=== PATIENT | male | born 1970 | race Caucasian/White ===

== ENCOUNTER 2016-10-24 12:47 | Emergency (ER) ==
[2016-10-24 12:58] VITALS: BP 117/70
--- NOTE | 2016-10-24 13:14 | PROVIDER DOCUMENTATION ---
HPI-Rash/Wound/ReCheck - General Chief Complaint: Suture/Staple Removal Stated Complaint: SUTURE/STAPLE REMOVAL Time Seen by Provider: 10/24/16 13:00 Source: patient Allergies/Adverse Reactions: Allergies Allergy/AdvReac Type Severity Reaction Status Date / Time No Known Allergies Allergy Verified 10/24/16 12:58 Home Medications: Home Medication List Medication Instructions Recorded Confirmed Last Taken Type Meloxicam [Mobic] 7.5 mg PO BID 10/15/16 10/24/16 10/23/16 History - History of Present Illness-Dermatology Nature of Presenting Problem: Pt was seen in ER 7 days ago for laceration repair above left eyebrow when he tripped and fell over dog. Pt had 7 sutures. Denies any pain or symptoms of infection. Location: reports: face Quality: reports: none Severity: reports: mild Onset/Duration: reports: 1 week ago Timing: reports: improving Context/Associated Symptoms: reports: laceration Identifiable cause?: Yes Locality of Occurance: Home Similar Symptoms Previously?: Yes Recently seen or treated by another doctor?: Yes - Recheck Treated days ago.: 7 Previous Treatment: laceration repair Antibiotics given: prescription Symptoms since procedure:: reports: no complaints Review of Systems - Adult - REVIEW OF SYSTEMS - ADULT Constitutional: denies: chills, fever, fatique Eyes: reports: no symptoms reported Ears, Nose, Mouth & Throat: denies: ear pain, sinus problem, throat pain Cardiovascular: reports: no symptoms reported Respiratory: reports: no symptoms reported Gastrointestinal: reports: no symptoms reported Genitourinary: reports: no symptoms reported Musculoskeletal: reports: no symptoms reported Integumentary: reports: see HPI. denies: mole changes, nail changes, skin thickening Neurological: reports: no symptoms reported Psychiatric: reports: no symptoms reported Endocrine: reports: no symptoms reported Hematologic/Lymphatic: reports: no symptoms reported Allergic/Immunologic: reports: no symptoms reported All Other Systems: Reviewed and Negative Past History - Adult - PAST MEDICAL HISTORY-ADULT Review of Records: reports: Nursing Assessment Review Major Childhood Illnesses: reports: denies history Cardiovascular: reports: HTN, hyperlipidemia Gastrointestinal: reports: GERD - IMMUNIZATION STATUS Childhood Immunizations: See Nurse Assessment Flu Vaccine: See Nurse Assessment - FAMILY HISTORY Family History: reviewed, not pertinent - SOCIAL HISTORY Smoking: cigarettes, less than 1 pack/day Provider spent 3-5 mins advising pt. on dangers of tobacco.: Discussed manners to quit use, and f/u contacts for add'l counseling. Substance Use: alcohol, marijuana Physical Exam-General - PHYSICAL EXAM-ADULT Initial Vital Signs Reviewed: Yes - CONSTITUTIONAL General Appearance: appears well, alert, no apparent distress - EYES Eyes: PERRL/EOMI - HEAD, EARS, NOSE, MOUTH & THROAT HENMT: normal ENT inspection, TMs normal, pharynx normal, other (sutures in place to left forehead above eyebrow no signs of redness or infection healing well) - NECK Neck: non-tender, full range of motion, supple, normal inspection - RESPIRATORY Respiratory: chest non-tender, lungs clear, normal breath sounds, no pleuratic chest pain, no respiratory distress, no accessory muscle use - CARDIOVASCULAR Cardiovascular: regular rate, rhythm - GASTROINTESTINAL (ABDOMEN) Abdominal Exam: non tender, soft, no organomegaly, no pulsatile mass - MUSCULOSKELETAL Extremity: normal range of motion, non-tender, normal gait - SKIN Integumentary: normal color - PSYCHIATRIC Psych/Mental Status: normal mood/affect, normal thought content, normal thought process, oriented x 3 Progress - PLAN OF CARE/RESULTS Progress/Plan/Lab Results: Nurse removed 7 sutures from pt left eyebrow area no complications no signs of infection Vital Signs - 24 hr 10/24/16 12:56 Temperature 99.0 F Pulse Rate 90 Respiratory 18 Rate Blood Pressure 117/70 O2 Sat by Pulse 97 Oximetry Departure - Departure Time of Disposition Order: 13:13 DIAGNOSIS: Visit for suture removal Disposition: HOME 01 Certified Medical Emergency: Emergent Condition: Stable Additional Instructions: ED Follow Up Instructions: You have been treated by a care provider in the Emergency Department. These instructions are being provided to you so you can have an understanding of how to care for yourself upon discharge. Upon discharge from the Emergency Department, you are responsible for making arrangements for follow-up care by a physician of your choice. Take all prescribed medications as directed. Return to the Emergency Department immediately for any new or worsening symptoms. You may call the Physician Referral phone number at [phone] to obtain a list of Physicians who are taking new patients. Referrals: Alexandra Berman MD [Primary Care Provider] - Forms: Return to School/Parent Work Instructions: Suture Removal, Care After Attestation - Scribe Verification/Attestation Scribe:: Alejandro Ramesh Acting as Scribe for:: Adria No Scribe documention review:: This chart was documented by a scribe and accurately reflects the service the provider performed and the decisions made by the provider. Physician Attestation - Physician Attestation I, the provider, attest to the following statement:: Adria No Physician documentation Attestation:: This documentation recorded by the scribe accurately reflects the service I personally performed and the decisions made by me.
== END 2016-10-24 13:23 | disposition home or self-care (01) ==
LOC: P.ED 12:47
DX: S01.81XD Laceration without foreign body of other part of head, subsequent encounter (principal); I10 Essential (primary) hypertension; E78.5 Hyperlipidemia, unspecified; F17.210 Nicotine dependence, cigarettes, uncomplicated; Z71.6 Tobacco abuse counseling; W01.0XXD Fall on same level from slipping, tripping and stumbling without subsequent striking against object, subsequent encounter
CPT/HCPCS: 99282

== ENCOUNTER 2017-01-06 12:43 | Inpatient (IN) ==
[2017-01-06] MEDS ORDERED: NS 1,000 ML IV PRN (12:52)
[2017-01-06] MEDS ORDERED: NS 1,000 ML IV ONE ×2 (13:04→17:17)
[2017-01-06] MEDS ORDERED: ZOFRAN IV ONE ×2 (13:05→13:07)
[2017-01-06 13:06] LABS: MANUAL DIFF NEEDED? NO
[2017-01-06] MEDS ORDERED: ZOFRAN ONE (13:06)
[2017-01-06] MEDS ORDERED: NS 1,000 ML ONE (13:06)
[2017-01-06 13:07] LABS: BASO% 0.4 % (0.0-0.8); EOS# 0.04 X1000 (0.0-0.7); EOS% 0.3 % (0.0-10.0); HEMATOCRIT 44.8 % (42.0-52.0); HEMOGLOBIN 14.9 g/dL (14.0-18.0); IMM GRAN# 0.03 X1000 (0.0-0.04); IMM GRAN% 0.2 % (0.0-0.5); LYMPH# 2.05 X1000 (1.2-3.4); LYMPH% 15.2 % (20.5-51.1); MCH 29.6 PG (27-31); MCHC 33.3 g/dL (33-37); MCV 89.1 FL (81-99); MONO# 0.44 X1000 (0.11-0.59); MONO% 3.3 % (1.7-9.3); MPV 10.1 FL (7.4-10.4); NEUT% 80.6 % (42.2-75.2); PLT 237 X1000 (130-400); RBC 5.03 XMIL (4.7-6.1)
[2017-01-06 13:27] LABS: INR 0.93 (0.86-1.15); PROTIME 12.8 Seconds (12.1-15.5)
[2017-01-06 13:28] LABS: PTT PL 25.8 Seconds (22.6-43.9)
[2017-01-06 13:35] LABS: AGAP 12; ALKALINE PHOSPHATASE 88 U/L (32-122); BUN 13 mg/dL (8-22); CALCIUM 8.9 mg/dL (8.8-10.2); CHLORIDE 102 mmol/L (98-107); COSMO 279; GOT 22 U/L (10-34); GPT 18 U/L (10-44); POTASSIUM 4.1 mmol/L (3.5-5.1); SODIUM 138 mmol/L (136-145); TCO2 24 mmol/L (25-35); TOTAL PROTEIN 7.4 g/dL (6.3-8.3)
--- NOTE | 2017-01-06 14:11 | Diag Imaging Result Document ---
PROCEDURE NAME: FLAT/UPRIGHT ABD/1 VIEW CHEST - 01/06/2017 FLAT AND UPRIGHT AND CHEST, THREE VIEWS: FINDINGS: The lungs are well expanded. No cardiomegaly. No pneumonia. No free air beneath the diaphragm. There are several air distended loops of small bowel in the mid and left abdomen. Stool is found is in the colon. No organomegaly. There is left pelvic calcification consistent with a phlebolith. IMPRESSION: Ileus versus partial small bowel obstruction.
[2017-01-06 16:36] LABS: AMYLASE 102 U/L (20-200); LIPASE 23 U/L (13-60)
[2017-01-06] MEDS ORDERED: ZOSYN 3.375 GM/NS 3.375 GM/50 ML IVPB IV ONE (16:43)
--- NOTE | 2017-01-06 16:58 | Diag Imaging Result Document ---
PROCEDURE NAME: ABDOMEN/PELVIS W/CONTRAST - 01/06/2017 CT ABDOMEN AND PELVIS WITH ORAL AND INTRAVENOUS CONTRAST: TECHNIQUE: Dose reduction protocol. FINDINGS: There is pericholecystic fluid with mild wall thickening suspicious for acute cholecystitis. No calcified gallstone. No focal hepatic abnormality. Normal spleen, pancreas, and adrenal glands. 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 No renal masses. No hydronephrosis. No aortic aneurysm. No bowel obstruction. Normal appearance. No abscess. No free air. The urinary bladder is moderately distended and appears normal. IMPRESSION: 1. Findings suspicious for acute cholecystitis. 2. Malpositioned and rotated left kidney. 3. No bowel obstruction. Normal appendix. No abscess. A preliminary report was called to Dr. Doyle in the emergency room at 4:03 p.m.
--- NOTE | 2017-01-06 17:16 | PROVIDER DOCUMENTATION ---
This chart was entered by Martine Gutierrez Scribe, acting as scribe for Red Doyle MD. HPI-Abdominal Pain/GI Problem - General Chief Complaint: Abdominal Pain Stated Complaint: ABD PAIN Time Seen by Provider: 01/06/17 13:05 Source: patient Allergies/Adverse Reactions: Patient Allergies Allergy/AdvReac Type Severity Reaction Status Date / Time No Known Allergies Allergy Verified 10/24/16 12:58 Home Medications: Home Medication List Medication Instructions Recorded Confirmed Last Taken Type Meloxicam [Mobic] 7.5 mg PO BID 10/15/16 10/24/16 10/23/16 History - History of Present Illness-ABD Nature of Presenting Problems: 46 yo M presents to ED with cc of epigastric abdominal pain with some radiation to RUQ and LUQ. Pt reports he is a recovering methamphetamine addict who relapsed last night. He reports 2 episodes of vomiting in the last 24 hours and denies blood in his vomit. Upon arrival to ED, pt is in moderate distress. Abdominal Pain Onset Location: reports: epigastric Pain Radiation: reports: RUQ, LUQ Severity in ED: reports: moderate Onset/Duration: reports: abrupt, 4-6 hours ago Timing: reports: still present Activities at Onset: reports: other (methamphetamine use) Exposure to sick contacts?: No Modifying Factors: improves with: nothing Associated Symptoms: reports: vomiting Dark Stools Present?: reports: none noticed Rectal Bleeding: reports: none # of Vomiting Episodes: 2 Review of Systems - Adult - REVIEW OF SYSTEMS - ADULT Constitutional: reports: no symptoms reported. denies: chills, fever Eyes: reports: no symptoms reported. denies: blurred vision, double vision Ears, Nose, Mouth & Throat: reports: no symptoms reported. denies: ear pain, nose pain, throat swelling Cardiovascular: reports: no symptoms reported. denies: chest pain, palpitations Respiratory: reports: no symptoms reported. denies: cough, shortness of breath Gastrointestinal: reports: abdominal pain (epigastric), vomiting Genitourinary: reports: no symptoms reported. denies: dysuria, flank pain Musculoskeletal: reports: no symptoms reported. denies: bone pain, back pain Integumentary: reports: no symptoms reported. denies: hives, itching Neurological: reports: no symptoms reported. denies: headache/migraines, loss of balance Psychiatric: reports: no symptoms reported. denies: anxiety, depression Endocrine: reports: no symptoms reported. denies: cold intolerance, heat intolerance Hematologic/Lymphatic: reports: no symptoms reported. denies: blood clots, lymphedema Allergic/Immunologic: reports: no symptoms reported. denies: eczema, frequent infections All Other Systems: Reviewed and Negative Past History - Adult - PAST MEDICAL HISTORY-ADULT Review of Records: reports: Old Records Reviewed, Nursing Assessment Review, Medications Reviewed Major Childhood Illnesses: reports: denies history Cardiovascular: reports: HTN, hyperlipidemia Gastrointestinal: reports: GERD - PRIOR SURGERIES/PROCEDURES Surgical/Procedure History: reports: none - IMMUNIZATION STATUS Childhood Immunizations: See Nurse Assessment Flu Vaccine: See Nurse Assessment - FAMILY HISTORY Family History: reviewed, not pertinent - SOCIAL HISTORY Substance Use: amphetamines (reports he was in recovery and had a relapse last night) Physical Exam-General - PHYSICAL EXAM-ADULT Initial Vital Signs Reviewed: Yes - CONSTITUTIONAL General Appearance: alert, moderate distress - EYES Eyes: PERRL/EOMI, pink conjunctivae - HEAD, EARS, NOSE, MOUTH & THROAT HENMT: normocephalic/atraumatic, moist mucous membranes, normal ENT inspection - NECK Neck: non-tender, full range of motion, supple - RESPIRATORY Respiratory: chest non-tender, lungs clear, normal breath sounds - CARDIOVASCULAR Cardiovascular: normal peripheral pulses, regular rate, rhythm - GASTROINTESTINAL (ABDOMEN) Abdominal Exam: normal bowel sounds, soft, tenderness (epigastric) - LYMPHATIC Lymphatic: no adenopathy - MUSCULOSKELETAL Back Exam: normal inspection, no CVA tenderness, no vertebral tenderness Extremity: normal range of motion, non-tender - SKIN Integumentary: normal color, normal turgor, warm/dry - NEUROLOGIC Neurologic: grossly normal, no motor/sensory deficits - PSYCHIATRIC Psych/Mental Status: normal mood/affect, normal thought content, normal thought process, oriented x 3 Progress - PLAN OF CARE/RESULTS Progress/Plan/Lab Results: Vital Signs - 8 hr 01/06/17 12:48 Pulse Rate 62 Respiratory Rate 20 Blood Pressure 193/99 O2 Sat by Pulse Oximetry 100 Orders Category Date Time Status Saline Loc DIRECTED Care 01/06/17 12:52 Active CBC WITH ELECTRONIC DIFF [HEME] Stat Lab 01/06/17 12:53 Results CK PROFILE [SP CHEM] Stat Lab 01/06/17 13:06 Ordered COMPREHENSIVE METABOLIC PANEL [CHEM] Stat Lab 01/06/17 12:53 Received OCCULT BLOOD SCREEN STOOL PL Stat Lab 01/06/17 12:52 Uncollected PROTIME WITH INR PL [COAG] Stat Lab 01/06/17 12:[address] [COAG] Stat Lab 01/06/17 12:53 Received TROPONIN T Stat Lab 01/06/17 13:06 Ordered TYPE & SCREEN [BBK] Stat Lab 01/06/17 12:53 Received 0.9% Sodium Chloride Inj [Ns] 1,000 ml Med 01/06/17 12:52 Discontinued IV 125 mls/hr 0.9% Sodium Chloride Inj [Ns] 1,000 ml Med 01/06/17 13:04 Active IV 999 mls/hr Ondansetron [Zofran] Med 01/06/17 13:05 Discontinued 4 mg IV NOW ONE Result Diagrams: 01/06/17 12:53 01/06/17 12:53 - REASSESSMENT Reassessment #1 Time Reassessed: 13:30 Status: unchanged Reassessment Comment: Deliver xray results and inform pt of need for CT Reassessment #2 Time Reassessed: 16:05 Status: unchanged Reassessment Comment: Deliver CT results - EKG 1 Time of EKG reading by physician:: 12:59 EKG Read and Signed by:: Red Doyle EKG Interpretation (*Must complete 3 of following elements*): Normal Rate: 46 Rhythm: sinus bradycardia [place]: normal QRS: normal [place] Interval: normal - XRAY 1 XRAY Study: Abdomen Impression: Abnormal XRAY Interpretation: Ileus versus partial small bowel obstruction (per Guero, radiology) - CT/MRI 1 CT Study: Abdomen Impression: Abnormal CT Results: acute cholecystitis (per Guero, radiology) Departure - Departure Time of Disposition Decision: 17:15 DIAGNOSIS: Cholecystitis Disposition: ADMITTED INPATIENT 09 Certified Medical Emergency: Emergent Condition: Stable Additional Freetext Instructions: ED Follow Up Instructions: You have been treated by a care provider in the Emergency Department. These instructions are being provided to you so you can have an understanding of how to care for yourself upon discharge. Upon discharge from the Emergency Department, you are responsible for making arrangements for follow-up care by a physician of your choice. Take all prescribed medications as directed. Return to the Emergency Department immediately for any new or worsening symptoms. You may call the Physician Referral phone number at [phone] to obtain a list of Physicians who are taking new patients. Referrals and Follow-Ups: Alexandra Berman MD [Primary Care Provider] - - Critical Care Note This patient required my direct & personal management of CC.: No Attestation - Physician/ ALISSA Attestation Patient care was provided by Advanced Practice Provider:: No This chart was documented by the indicated scribe, (Martine Gutierrez, Genieiblashay) and accurately reflects the services I performed and decisions made by me, Red Doyle MD, as attested by the provider's signature.
--- NOTE | 2017-01-06 18:57 | EKG Report ---
Test Performed on : 01/06/2017 12:59:07 PM Test Reason : cp Blood Pressure : / mmHG Vent. Rate : 046 BPM Atrial Rate : 046 BPM P-R Int : 158 ms QRS Dur : 098 ms QT Int : 446 ms P-R-T Axes : 028 -28 033 degrees QTc Int : 390 ms Sinus bradycardia. Otherwise normal ECG No previous ECGs available Unconfirmed Result
[2017-01-06] MEDS: LR 1,000 ML IV SCH (19:46)
[2017-01-06] MEDS ORDERED: SODIUM CHLORIDE 0.9% INJ SCH (21:15)
[2017-01-06] MEDS ORDERED: ZOFRAN IV PRN (21:15)
[2017-01-06] MEDS: ZOSYN 3.375 GM/NS 3.375 GM/50 ML IVPB IV SCH (22:08)
[2017-01-06] MEDS: PROTONIX IV SCH (22:08)
[2017-01-06] MEDS: MORPHINE IV PRN (22:08)
[2017-01-06 22:26] LABS: HDL 49 mg/dL (35-55); LDL 79 mg/dL; TRIGLYCERIDES 62 mg/dL (39-160); VLDL 12 mg/dL
--- NOTE | 2017-01-06 23:24 | HISTORY AND PHYSICAL ---
DATE OF ADMISSION: 01/06/2017 HISTORY OF PRESENT ILLNESS: This is a 46-year-old male with history of hypertension and methamphetamine abuse who had a methamphetamine dorado last night and developed acute abdominal pain this morning and nausea, vomiting associated with this prompting admission to the emergency department. In emergency department has been hemodynamically stable. Blood pressure 193/99 however he has received pain medicine, antiemetics and feels better. CT scan shows a dilated gallbladder with some stranding around it consistent with cholecystitis. PAST MEDICAL HISTORY: Hypertension. Denies any cardiac history, pulmonary history. SURGICAL HISTORY: Negative. REVIEW OF SYSTEMS: Ten point negative what is mentioned in HPI. SOCIAL HISTORY: Previously smoked methamphetamine most recently use last night. Denies any other injection drugs. Smokes pack a day. No alcohol. FAMILY HISTORY: Colon cancer in his father 75 and bone cancer in his mother. DATA: A CT scan of the abdomen and pelvis shows a congenital malposition left kidney, distended gallbladder with wall thickening and stranding and fluid consistent with cholecystitis but otherwise no acute findings. PHYSICAL EXAMINATION: Vital Signs: Temperature is 97.6 degrees, pulse 62, blood pressure 193/99, oxygen saturation 100% on room air. General: He is alert in no acute distress. HEENT: No scleral icterus. Cardiovascular: Normal rate, regular rhythm. Pulmonary: No increased work of breathing. Abdomen: Soft. There is some mild tenderness in right upper quadrant but is very mild. There is no diffuse peritonitis segments otherwise warm, dry. There is no cervical lymphadenopathy. Musculoskeletal: Muscle tone is normal throughout. Neuro: He does seem a bit drowsy but he is oriented to person, place, time. LABS: White count 13, hematocrit 44, platelets 237,000. INR 0.93. Sodium is 138, potassium 4.1, creatinine 0.7, glucose 151. LFTs are normal. Bilirubin 0.2, AST, ALT 22, 18, alkaline phosphatase 88, amylase 102, lipase 23, troponins are normal at less than 0.01. ASSESSMENT AND PLAN: 46-year-old male with methamphetamine abuse very hypertensive in emergency department now who presents with CT and clinical evidence of acute cholecystitis. Risks, benefits, alternatives including bleeding, infection, bile leak, common bile duct injury discussed with the patient. He consents to laparoscopic cholecystectomy. Will keep him NPO. He is receiving Zosyn now will continue this tonight and plan on cholecystectomy tomorrow. Will plan admit him to the hospital service for cardiac evaluation, management of his hypertension and hyperglycemia in anticipation of surgery tomorrow. cc: Umu Alfredo MD
--- NOTE | 2017-01-06 23:35 | CONSULTATION ---
DATE OF CONSULTATION: 01/06/2017 PRIMARY CARE PROVIDER: Alexandra Berman. CONSULTING PROVIDER: Rob Freeman, surgeon. CHIEF COMPLAINT: Abdominal pain. HISTORY OF PRESENT ILLNESS: This is a 46-year-old male who presented to [facility] emergency room with epigastric abdominal pain that radiated to his right upper and lower quadrant. He is reportedly a recovering methamphetamine addict who relapsed last night and smoked methamphetamines. He did report 2 episodes of vomiting in the last 24 hours. Denied any type of hematemesis. He described the pain as a sharp, aching pain that started abruptly on arrival to the emergency room. He was in moderate distress. He denied fever, chills. Was positive for nausea and vomiting x2 episodes. Denied any chest pain, palpitations, cough, shortness of breath, dysuria, flank pain or hematochezia or melena. A CT scan was obtained in the emergency room that showed acute cholecystitis. Dr. Alfredo was called by the ER and will admit and plan on surgery in a.m. PAST MEDICAL HISTORY: 1. Hypertension. 2. Hyperlipidemia. 3. GERD. 4. Methamphetamine use and abuse. PREVIOUS SURGICAL HISTORY: None. SOCIAL HISTORY: Lives with his dad. Is a recovering methamphetamine addict. States that he relapsed last night, denies alcohol, smokes 1/2 pack a cigarettes per day to 1 pack. Smoking cessation was gone over with the patient. He denies wanting to quit at this time. FAMILY HISTORY: Mother at age 69 from primary bone cancer. Father had colon cancer and is in remission. ALLERGIES: No known drug allergies. HOME MEDICATIONS: Mobic 7.5 mg daily. REVIEW OF SYSTEMS: Fourteen point review of systems conducted with the patient. Pertinent positives listed above in the HPI. All other systems were reviewed and found to be negative. PHYSICAL EXAMINATION: Vital Signs: Temperature 98.1 degrees, pulse 55, respirations 14, blood pressure 164/93, oxygen saturation 97% on room air. General: A 46-year-old male lying in the medical floor bed. Has some complaint of abdominal pain but no acute distress. Answers all questions appropriately. HEENT: Head is atraumatic, normocephalic. Pupils equal, round, reactive to light. Extraocular eye movement intact. Sclerae is anicteric. Conjunctivae is pink. Oral mucosa is moist. Neck: Supple. No JVD. No thyromegaly. Trachea is midline. No cervical lymphadenopathy. Cardiac: Regular rhythm. Sinus bradycardia. S1-S2 appreciated. No murmurs, gallops, rubs. Lungs: Clear to auscultation bilaterally. No rhonchi, wheezes , rales. Symmetrical rise and fall respirations. Abdomen: Soft, nondistended, diffusely tender. Greatest areas of tenderness in the right upper quadrant and right lower quadrant. Positive Ravi sign. No pulsatile mass. No organomegaly. Extremities: No clubbing, cyanosis, or edema. Genitourinary: The patient voids, otherwise deferred. Neurological: Alert and oriented x3. Cranial nerves 2-12 grossly intact. DIAGNOSTIC DATA: CT of the abdomen showed acute cholecystitis. LABORATORY DATA: WBC 13.50, hemoglobin 14.9, hematocrit 44.8, platelet count 237,000. Coagulations within normal limits. Sodium 138, potassium 4.1, chloride 102, carbon dioxide 24, BUN 13, creatinine 0.7, glucose 151, CK 81. Troponin less than 0.010. Amylase 102, lipase 23. ASSESSMENT AND PLAN: 1. Acute cholecystitis. Dr. Alfredo is planning to do surgery in a.m. He has started Zosyn. Will add morphine 2 mg IV q.3 hours p.r.n. pain. 2. Hypertension. Patient does not appear to be taking any chronic antihypertensives. Will give Apresoline 10 mg IV q.6 hours as he will be NPO at this time. Will assess further need for discharge medications. 3. Hyperlipidemia. Again patient does not take a medication for hyperlipidemia at home. Will check a lipid profile. 4. Methamphetamine use and abuse. The patient stated he relapsed last night but states that he is feels bad about it and is quitting. We are aware of this. 5. Tobacco use and abuse. Smoking cessation was gone over with the patient. He denies want to quit at this time. Further recommendations per patient clinical course. Dictated by SAMANTA Doshi for Rogerio Skelton MD cc: MD Rogerio Crockett MD R. Tyler Harney, MD MTDD
[2017-01-07] MEDS: APRESOLINE IV SCH ×5 (02:25→20:31)
[2017-01-07] MEDS: ZOSYN 3.375 GM/NS 3.375 GM/50 ML IVPB IV SCH ×2 (03:59→10:12)
[2017-01-07] MEDS: MORPHINE IV PRN ×5 (03:59→23:18)
[2017-01-07] MEDS: LR 1,000 ML IV SCH ×3 (04:52→23:19)
[2017-01-07 05:48] LABS: MANUAL DIFF NEEDED? NO
[2017-01-07 05:52] LABS: BASO% 0.1 % (0.0-0.8); EOS# 0.16 X1000 (0.0-0.7); HEMATOCRIT 39.6 % (42.0-52.0); HEMOGLOBIN 13.3 g/dL (14.0-18.0); LYMPH# 3.26 X1000 (1.2-3.4); LYMPH% 20.2 % (20.5-51.1); MCH 30.1 PG (27-31); MCHC 33.6 g/dL (33-37); MCV 89.6 FL (81-99); MONO# 0.97 X1000 (0.11-0.59); MPV 10.7 FL (7.4-10.4); NEUT% 72.7 % (42.2-75.2); PLT 230 X1000 (130-400); RBC 4.42 XMIL (4.7-6.1)
[2017-01-07 06:14] LABS: AGAP 12; BUN 7 mg/dL (8-22); CALCIUM 8.6 mg/dL (8.8-10.2); CHLORIDE 103 mmol/L (98-107); COSMO 276; POTASSIUM 4.1 mmol/L (3.5-5.1); SODIUM 139 mmol/L (136-145); TCO2 24 mmol/L (25-35)
[2017-01-07] MEDS ORDERED: PNEUMOVAX 23 IM ONE (07:34)
[2017-01-07] MEDS ORDERED: MARCAINE 0.25% PF/EPI 1:200,000 ONE (10:48)
[2017-01-07] MEDS ORDERED: SODIUM CHLORIDE 0.9% ONE (10:48)
[2017-01-07] MEDS ORDERED: LR 1,000 ML ONE (10:49)
[2017-01-07] MEDS ORDERED: OMNIPAQUE ONE (10:49)
[2017-01-07] MEDS ORDERED: PEPCID ONE (11:12)
--- NOTE | 2017-01-07 14:00 | PROGRESS NOTE ---
DATE: 01/07/2017 SUBJECTIVE: He feels okay this morning. No events overnight. Says his pain is improving but is still persistent. OBJECTIVE: Vital signs: Blood pressures have been better. Temperature 98.3 degrees this morning. It is up to 188/87. It was in the 150s overnight. Oxygen saturation 98% on room air. General: He is alert and oriented. HEENT: There is no scleral icterus. Cardiovascular: Normal rate. Regular rhythm. Pulmonary: No increased work of breathing. Abdomen: Soft. There is mild right upper quadrant tenderness. Skin: There is no jaundice on the skin exam. Extremities: There is no lower extremity edema. Reviewed. LABS: I reviewed labs. White count is up to 16, hematocrit is 39, creatinine 0.7. LFTs, amylase, and lipase were normal on the admission. ASSESSMENT AND PLAN: This is a 46-year-old male with gallstones, cholecystitis noted on CT scan, hypertension, and methamphetamine abuse. He has been clinically stable overnight. He is on antibiotics. Will plan to go to operating room today for laparoscopic cholecystectomy and cholangiogram. Risks, benefits, and alternatives were discussed with the patient and he consented to the procedure. We discussed the possibility of conversion to open, bleeding, infection, bile leak, and common bile duct injury, or damage to other structures. We also discussed possibility of leaving a drain and if stones are noted on ERCP the need for other ERCP procedures in the future. Continue to monitor him this morning. He is on IV antibiotics. He is NPO. Will plan to go to surgery and advance his diet as tolerated afterwards. The medicine service has seen him and has made recommendation regarding blood pressure and will ensure that he has good follow up for this in the future. cc: MD Nito Adame MD
[2017-01-07] MEDS ORDERED: FENTANYL ONE (15:21)
[2017-01-07] MEDS ORDERED: VERSED ONE (15:22)
[2017-01-07] MEDS ORDERED: DIPRIVAN 1% ONE (15:22)
--- NOTE | 2017-01-07 17:32 | OPERATIVE NOTE ---
PROCEDURE DATE: 01/07/2017 PREOPERATIVE DIAGNOSIS: Cholecystitis with cholelithiasis. POSTOPERATIVE DIAGNOSIS: Cholecystitis with cholelithiasis. PROCEDURE PERFORMED: Laparoscopic cholecystectomy with intraoperative cholangiogram. SURGEON: Umu Alfredo MD ESTIMATED BLOOD LOSS: 35 mL. SPECIMENS: Gallbladder. ANESTHESIA: General. DRAINS: Tone drain left in the gallbladder fossa. COMPLICATIONS: None. INDICATIONS: This is a 46-year-old male with a history of hypertension and methamphetamine abuse, who presents with right upper quadrant abdominal pain to the ER yesterday. CT scan suggested early cholecystitis. He was admitted for IV antibiotics and medical workup given his acute intoxication with methamphetamine. Prior to proceeding to surgery, he was medically stable this morning and was felt safe for cholecystectomy as his blood pressure had been controlled overnight. OPERATIVE FINDINGS: 1. There was a densely inflamed gallbladder with very thickened marinelli containing multiple large gallstones. 2. Interpretation of intraoperative cholangiogram: At the time of cholangiogram , there was an occluded cystic duct noted chronically. There was no evidence of flow of contrast in the common bile duct. This was an incomplete cholangiogram. OPERATIVE NOTE: The risks, benefits, and alternatives were discussed with the patient and he consented to the procedure. He was seen in the preoperative area and surgery to be performed was confirmed. He was taken to the operating room and placed in supine position. General anesthesia was induced without complications. All bony prominences were padded. The abdomen was prepped with chlorhexidine solution and draped in the usual fashion. After a time-out was performed, a periumbilical block was made. He had a long dimension between the xiphoid process and his umbilicus. As such, we made an incision above the umbilicus after the time-out was performed. We carried this down and entered the fascia along the midline and entered the abdomen in open controlled fashion. We placed a 12 mm Divina trocar, insufflated the abdomen to 15 mmHg, and inspected underlying to make sure there was no injury to underlying structures. We then placed 3 trocars, 5 mm, after infiltration of the peritoneum, 1 at the epigastric, 1 in the midclavicular line off the costal margin, and 1 more laterally. The gallbladder was very distended tensely, so we decompressed this with a decompression suction needle. This facilitated retraction cephalad. He had a very large, fatty appearing liver. The left lobe was large and almost encasing the gallbladder, but we were able to establish exposure starting laterally and progressing medially. We stripped down the peritoneum, identifying the cystic duct and infundibulocystic junction. We encircled this, creating the critical view of safety. The liver was visualized through this. We singly clipped the gallbladder and made a ductotomy. We performed a cholangiogram with the above findings. We triply clipped the duct and divided this. There was a large node of Calot over the triangle that we had to dissect down prior to doing all this. There were some small arterial branches. We divided with electrocautery. We identified a larger posterior branch that was doubly clipped and divided. We began removing the gallbladder from the gallbladder fossa. It was densely adherent to the liver bed and we entered the gallbladder and left a portion of the posterior wall and the gallbladder fossa until we removed the gallbladder. We then placed the gallbladder into an EndoCatch bag. We placed the stones in there that were spilled with it. We then excised the remaining portions of the posterior gallbladder wall. It was very hemorrhagic and densely inflamed, there was a posterior artery coursing along the gallbladder that we doubly clipped as well. This entered the gallbladder directly. It did not go into the liver bed. At the conclusion, we copiously irrigated, suctioned out, and confirmed hemostasis. Given the friability of the gallbladder fossa, we elected to use Surgicel here. We placed a Tone drain given the acute inflammatory state and secured it with 2-0 nylon. We brought it out through the lateral port. We again inspected the abdomen. We copiously irrigated. We even lowered the pressure to inspect the liver bed again to make sure it was hemostatic and it was. There was a focal area of residual gallbladder wall left in the fossa and we fulgurated this. We desufflated the abdomen and brought the gallbladder out through the umbilical incision. We closed this with interrupted 0 Vicryl suture. The skin was closed with 4-0 Monocryl. Dermabond was applied. Counts correct x2. The patient tolerated the procedure well. There were no identified complications. He was awoken and transferred to the PACU in good condition. cc: MD Nito Adame MD MTDD
--- NOTE | 2017-01-07 17:58 | PROGRESS NOTE ---
DATE: 01/07/2017 SUBJECTIVE: Patient looks well postop, no major complaints. OBJECTIVE: Vital signs: Blood pressure 148/83, heart rate 99, respiratory rate of 16, temperature 97.4 degrees. Cardiovascular: Regular rate and rhythm. Pulmonary: Bilateral breath sounds. Clear to auscultation. GI: Soft, nontender, nondistended. Bowel sounds are positive. Extremities: No clubbing or cyanosis. Lymphatics: No peripheral edema. PROBLEM LIST: 1. Cholecystitis per Dr. Alfredo. He is on Zosyn. He is status post surgery, he seems to be doing okay. There is some concern over doing a ERCP. Patient is NPO and on IV antibiotics. 2. Hypertension. We will continue to follow. 3. Methamphetamine abuse aware. I am just going to leave him on some p.r.n. Ativan and we will continue to follow. DISPOSITION: Per surgery, continue to monitor. cc: Nito Salguero MD
[2017-01-07] MEDS: ATIVAN IV PRN (18:30)
[2017-01-07] MEDS: PERIDEX MT SCH (20:31)
[2017-01-07] MEDS: PROTONIX IV SCH (20:32)
[2017-01-08] MEDS: APRESOLINE IV SCH ×2 (02:27→08:49)
[2017-01-08] MEDS: MORPHINE IV PRN ×3 (02:27→08:48)
[2017-01-08] MEDS: ATIVAN IV PRN (03:57)
[2017-01-08 05:56] LABS: HEMATOCRIT 41.5 % (42.0-52.0); HEMOGLOBIN 14.1 g/dL (14.0-18.0); MCH 30.5 PG (27-31); MCV 89.6 FL (81-99); MPV 10.5 FL (7.4-10.4); RBC 4.63 XMIL (4.7-6.1)
[2017-01-08 06:08] LABS: AGAP 8; ALBUMIN 3.2 g/dL (3.5-5.0); ALKALINE PHOSPHATASE 86 U/L (32-122); BUN 8 mg/dL (8-22); CALCIUM 8.8 mg/dL (8.8-10.2); CHLORIDE 103 mmol/L (98-107); COSMO 279; GOT 58 U/L (10-34); GPT 79 U/L (10-44); POTASSIUM 4.6 mmol/L (3.5-5.1); SODIUM 141 mmol/L (136-145); TCO2 30 mmol/L (25-35); TOTAL BILIRUBIN 0.44 mg/dL (0.20-1.00); TOTAL PROTEIN 6.3 g/dL (6.3-8.3)
[2017-01-08] MEDS: PERIDEX MT SCH (08:49)
[2017-01-08] MEDS ORDERED: REGLAN ONE (09:06)
[2017-01-08] MEDS ORDERED: NEOSTIGMINE ONE (09:06)
[2017-01-08] MEDS ORDERED: ROBINUL ONE (09:06)
[2017-01-08] MEDS ORDERED: ZOFRAN ONE (09:06)
[2017-01-08] MEDS ORDERED: QUELICIN (DOSE) ONE (09:07)
[2017-01-08] MEDS ORDERED: XYLOCAINE-MPF 2% ONE (09:07)
[2017-01-08] MEDS ORDERED: DECADRON ONE (09:07)
[2017-01-08] MEDS ORDERED: LR 2,000 ML ONE (09:07)
[2017-01-08] MEDS ORDERED: ZEMURON ONE (09:07)
[2017-01-08] MEDS ORDERED: EXTENSION SET 32 IN 4522 ONE (09:07)
[2017-01-08] MEDS ORDERED: ANESTHESIA PB SET 88 IN 5742 ONE (09:07)
[2017-01-08 09:35] VITALS: BP 147/74
== END 2017-01-08 11:10 | disposition home or self-care (01) ==
LOC: P.ED 12:43 → SUATTDRO 18:17 → 4N 18:17
PROVIDERS: ADMIT Emergency Medicine; ATTEND Surgery

== ENCOUNTER 2017-01-12 16:23 | Inpatient (IN) ==
--- NOTE | 2017-01-12 18:15 | PROVIDER DOCUMENTATION ---
HPI-Abdominal Pain/GI Problem - General Chief Complaint: Post Op Complaint Stated Complaint: POST OP COMPLAINT Time Seen by Provider: 01/12/17 17:35 Source: patient Allergies/Adverse Reactions: Patient Allergies Allergy/AdvReac Type Severity Reaction Status Date / Time No Known Allergies Allergy Verified 10/24/16 12:58 Home Medications: Home Medication List Medication Instructions Recorded Confirmed Last Taken Type Meloxicam [Mobic] 7.5 mg PO BID 10/15/16 01/06/17 01/12/17 History Docusate Sodium [Colace] 100 mg PO BID #60 capsule 01/08/17 01/12/17 Rx Hydrocodone/Acetaminophen [[place] 1 each PO Q6H PRN PRN 1 Days 01/08/17 Rx 7.5-325 Tablet] - History of Present Illness-ABD Nature of Presenting Problems: 46 YO WM presents with right abdominal pain since this morning. Had cholecystectomy 2 days ago, now having severe pain at the drainage site. Per nursing staff, took all of his pain medication he was RX'd in the last two days ; reports to me that had one [place] this morning at 0800 and nothing since. Woke up with the pain. Last BM this morning, was small but normal. No N/V/D, no fever at home. Is crying due to the pain. Abdominal Pain Onset Location: reports: RUQ Pain Radiation: reports: back Quality of Pain: reports: burning, stabbing Severity in ED: reports: severe Onset/Duration: reports: this morning Timing: reports: still present Activities at Onset: reports: none Exposure to sick contacts?: No Modifying Factors: improves with: nothing Associated Symptoms: reports: back/neck pain. denies: arm pain, chest pain, constipation, cough, diaphoresis, diarrhea, dizziness, EENT symptoms, fatigue, fever/chills, genitourinary problems, nausea, rash, syncope, vomiting Last BM: this morning Dark Stools Present?: reports: none noticed Rectal Bleeding: reports: none # of Diarrhea Episodes: 0 # of Vomiting Episodes: 0 Recently seen or treated by another doctor?: Yes Review of Systems - Adult - REVIEW OF SYSTEMS - ADULT Constitutional: denies: chills, fever Eyes: denies: decreased vision Respiratory: denies: cough, shortness of breath, wheezing Gastrointestinal: reports: abdominal pain. denies: constipation, diarrhea, nausea, vomiting Genitourinary: denies: discharge, frequency, hematuria Musculoskeletal: reports: back pain. denies: bone pain, joint pain, joint swelling, muscle aches Integumentary: denies: itching, rash Neurological: denies: dizziness/vertigo, headache/migraines Past History - Adult - PAST MEDICAL HISTORY-ADULT Review of Records: reports: Old Records Reviewed, Nursing Assessment Review, Medications Reviewed, Social history reviewed & non-contributory. Major Childhood Illnesses: reports: denies history Cardiovascular: reports: HTN, hyperlipidemia Gastrointestinal: reports: GERD - PRIOR SURGERIES/PROCEDURES Surgical/Procedure History: reports: none - IMMUNIZATION STATUS Childhood Immunizations: See Nurse Assessment Flu Vaccine: See Nurse Assessment - FAMILY HISTORY Family History: reviewed, not pertinent Physical Exam-General - PHYSICAL EXAM-ADULT Initial Vital Signs Reviewed: Yes - CONSTITUTIONAL General Appearance: alert, severe distress (grabbing his right side, is crying and breathing heavily in bed) - EYES Eyes: PERRL/EOMI, pink conjunctivae. negative: sclera injected, scleral icterus - HEAD, EARS, NOSE, MOUTH & THROAT HENMT: normocephalic/atraumatic, moist mucous membranes - NECK Neck: full range of motion, supple, normal inspection - RESPIRATORY Respiratory: chest non-tender, lungs clear, normal breath sounds, no pleuratic chest pain, no respiratory distress, no accessory muscle use. negative: crackles, rales, rhonchi, stridor, wheezing - CARDIOVASCULAR Cardiovascular: no edema, no gallop, no JVD, tachycardia - GASTROINTESTINAL (ABDOMEN) Abdominal Exam: negative: non tender (exquistely tender in the RUQ at surgical site. Drain has non-purulent fluid drainage, about half full in the grenade. Minimal inflammation at drainage site.) Progress - PLAN OF CARE/RESULTS Progress/Plan/Lab Results: Vital Signs - 8 hr 01/12/17 16:40 Temperature 99.3 F Pulse Rate 97 H Respiratory Rate 20 Blood Pressure 105/54 O2 Sat by Pulse Oximetry 100 Result Diagrams: 01/12/17 18:20 01/12/17 18:20 - REASSESSMENT Reassessment #1 Time Reassessed: 20:19 (Discussed with Dr. Alvarado who agrees should call surgery. ) - CT/MRI 1 CT Study: Abdomen, Pelvis Impression: Abnormal (Post surgical changes, otherwise nothing acute.) - CONSULTS/PCP/HOSPITALIST Notification #1 *Consult/PCP/Hospitalist*: Dr. Contreras, Surgeon Time Discussed: 20:20 (Discussed CT results and the patient. He will come down to see pt in the ED.) Consult Disposition: Will see in ED Departure - Departure Time of Disposition Decision: 20:20 DIAGNOSIS: RUQ abdominal pain Post surgical complication Qualifiers: Surgical complication system/body Area: digestive system Surgical complication type: unspecified Procedure type: digestive system Qualified Code(s): K91.89 - Other postprocedural complications and disorders of digestive system Disposition: ADMITTED INPATIENT 09 Certified Medical Emergency: Emergent Condition: Stable - Critical Care Note This patient required my direct & personal management of CC.: No Attestation - Physician/ ALISSA Attestation Patient care was provided by Advanced Practice Provider:: Yes Advanced Practice Provider:: Otoniel Chávez Advanced Practice Provider documentation review:: The Mid-level provider documentation, treatment plan and medical decision making was reviewed by the physician who agrees with all treatment and medical decision making by the MLP.
[2017-01-12 18:34] LABS: MANUAL DIFF NEEDED? NO
[2017-01-12 18:38] LABS: BASO% 0.2 % (0.0-0.8); EOS% 1.1 % (0.0-10.0); HEMATOCRIT 44.9 % (42.0-52.0); HEMOGLOBIN 15.2 g/dL (14.0-18.0); IMM GRAN# 0.04 X1000 (0.0-0.04); IMM GRAN% 0.2 % (0.0-0.5); LYMPH# 1.53 X1000 (1.2-3.4); LYMPH% 8.4 % (20.5-51.1); MCHC 33.9 g/dL (33-37); MCV 88.7 FL (81-99); MONO# 1.23 X1000 (0.11-0.59); MONO% 6.7 % (1.7-9.3); NEUT% 83.4 % (42.2-75.2); PLT 328 X1000 (130-400); RBC 5.06 XMIL (4.7-6.1)
[2017-01-12] MEDS ORDERED: ZOFRAN IV ONE (18:39)
[2017-01-12] MEDS ORDERED: DILAUDID IV ONE ×2 (18:39→20:09)
[2017-01-12 18:57] LABS: AGAP 11; ALBUMIN 3.6 g/dL (3.5-5.0); ALKALINE PHOSPHATASE 153 U/L (32-122); BUN 9 mg/dL (8-22); CALCIUM 8.8 mg/dL (8.8-10.2); CHLORIDE 98 mmol/L (98-107); COSMO 267; GOT 74 U/L (10-34); GPT 64 U/L (10-44); POTASSIUM 4.5 mmol/L (3.5-5.1); SODIUM 134 mmol/L (136-145); TCO2 25 mmol/L (25-35); TOTAL BILIRUBIN 1.01 mg/dL (0.20-1.00); TOTAL PROTEIN 7.6 g/dL (6.3-8.3)
--- NOTE | 2017-01-12 19:53 | Diag Imaging Result Doc PS360 ---
EXAM: CT ABD/PELVIS W/ IV CONT ONLY HISTORY: post cholecystectomy pain TECHNIQUE: CT of the abdomen with intravenous contrast and decreased radiation dose (clarity.) COMMENT: The current study is compared with that of 01/06/2017. There is subsegmental atelectasis in the left lower lobe which was not present previously. The periportal edema which was present at the time the previous study has resolved. Multiple surgical clips are seen in the gallbladder fossa and there is some residual hematoma/postsurgical change. There is a drain passing anterior to the cecum and terminating just anterior to the hepatic flexure. This is at some distance from the gallbladder fossa. There is no apparent abscess. The spleen is not enlarged. The adrenal glands are not enlarged. The small bowel is not distended and there is no evidence of significant adenopathy. There are postsurgical changes around the umbilicus. CT of the pelvis with intravenous contrast: The right kidney is without evidence of hydronephrosis or mass. 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 There is some hyperdense material in the distal appendix which may be residual contrast medium. The appendix is neither distended nor inflamed in appearance. No significant free fluid is present. There is bilateral spondylolysis at L5. IMPRESSION: Postsurgical changes. No evidence of abscess or biliary obstruction. Otherwise unchanged since 01/06/2017. Electronically signed by Sandro Lopez 01/12/2017 7:50 PM
--- NOTE | 2017-01-12 21:54 | HISTORY AND PHYSICAL ---
HISTORY OF PRESENT ILLNESS: Mr. Nick Suarez is a 46-year-old white male, patient Dr. Rob Alfredo who is now postop day 5 from a laparoscopic cholecystectomy for acute cholecystitis performed on 01/07/2017. At the time of surgery there was an incomplete cholangiogram and the common bile duct was never visualized. It appeared that it was a difficult dissection and the drain was left. He has been discharged home with that drain and returns to the emergency department today with epigastric pain. A CT scan was performed as part of his evaluation by the emergency department physician. There appeared to be a residual hematoma and postsurgical change in the gallbladder fossa. The drain was some distance from the gallbladder fossa. There did not appear to be an apparent abscess or any significant free fluid. His white blood cell count is 18 and we were asked to evaluate him. PAST MEDICAL HISTORY: Cholecystectomy, drug abuse. MEDICATIONS: None. ALLERGIES: None. SOCIAL HISTORY: Lives with his father who is a beard but actually his father is hospitalized at [facility] at this time. He is not working. He does smoke approximately a pack of cigarettes a day. REVIEW OF SYSTEMS: Noncontributory. FAMILY HISTORY: Noncontributory. PHYSICAL EXAMINATION: GENERAL: Mr. Suarez is tachycardic. He does appear to be in no acute distress. HEENT: He has no evidence of jaundice, no oral lesions. NECK: No cervical or supraclavicular lymphadenopathy. HEART: Has a regular rate. LUNGS: Clear except for some crackles left base. ABDOMEN: Was mostly soft. His trocar incisions seem to be healing well. He has a Tone drain in place with thick drainage but no evidence of bilious drainage. He had no costovertebral tenderness. RECTAL EXAM: Was not performed. EXTREMITIES: He does have palpable peripheral pulses. No peripheral edema. NEUROLOGICAL: He no focal deficits. DATA: I reviewed his CT scan in the report per Dr. Lopez. His white blood cell count is elevated at 18.2, hematocrit 44%. His total bilirubin is 1.01, his AST 74, ALT 64, alkaline phosphatase is 153. His BUN and creatinine are [address] did not suggest any biliary dilatation. IMPRESSION: Abdominal pain and elevated white blood cell count postoperative day 5 laparoscopic cholecystectomy with a Tone drain in place right upper quadrant. Patient of Dr. Rob Freeman. I reviewed the CT scan and there is no significant free fluid or obvious intraabdominal abscess. PLAN: We will admit him with IV fluids and IV Zosyn. We will leave the JUN drain in place. Be sure it remains functional. Will allow him to have clear liquids and watch him clinically. cc: Margoth Contreras MD
[2017-01-12] MEDS ORDERED: NICODERM PATCH TD PRN (22:58)
[2017-01-12] MEDS ORDERED: PHENERGAN IV PRN (22:58)
[2017-01-12] MEDS ORDERED: SODIUM CHLORIDE 0.9% INJ PRN (22:58)
[2017-01-12] MEDS ORDERED: TYLENOL PO PRN (22:58)
[2017-01-12] MEDS: MORPHINE IV PRN (23:21)
[2017-01-12] MEDS: D5 1/2 NS + KCL 20 MEQ 1,000 ML IV SCH (23:21)
[2017-01-12] MEDS: ZOSYN 3.375 GM/NS 3.375 GM/50 ML IVPB IV SCH (23:33)
[2017-01-12] MEDS: LOVENOX SUBQ SCH (23:33)
[2017-01-13] MEDS: MORPHINE IV PRN ×5 (05:07→22:24)
[2017-01-13] MEDS: ZOSYN 3.375 GM/NS 3.375 GM/50 ML IVPB IV SCH ×4 (05:09→22:25)
[2017-01-13] MEDS: NORCO-10 PO PRN (10:11)
[2017-01-13] MEDS: D5 1/2 NS + KCL 20 MEQ 1,000 ML IV SCH ×3 (10:59→22:59)
--- NOTE | 2017-01-13 15:00 | PROGRESS NOTE ---
DATE: 01/13/2017 Mr. Nick Suarez is a 46-year-old white male, patient of Dr. Alfredo's status post laparoscopic cholecystectomy earlier this week. He had acute cholecystitis and the procedure was difficult and a Tone drain was left. He presented to the emergency department yesterday with increasing right upper quadrant pain and a white blood cell count of 18. A CT scan was performed which did not suggest any free fluid except in the gallbladder fossa. There was no bile coming from the Tone drain. It was mostly serous fluid but he was admitted for IV antibiotics and IV fluid resuscitation. He feels better this morning. I did not check repeat labs this morning. He is on IV Zosyn and will continue that. We have placed him on clear liquid diet. cc: MD Umu Dietz MD
[2017-01-13] MEDS: LOVENOX SUBQ SCH (22:25)
[2017-01-14] MEDS: MORPHINE IV PRN ×2 (01:36→04:41)
[2017-01-14] MEDS: ZOSYN 3.375 GM/NS 3.375 GM/50 ML IVPB IV SCH ×4 (04:41→22:39)
[2017-01-14 06:07] LABS: MANUAL DIFF NEEDED? NO
[2017-01-14 06:16] LABS: BASO% 0.2 % (0.0-0.8); EOS# 0.46 X1000 (0.0-0.7); EOS% 4.1 % (0.0-10.0); HEMATOCRIT 41.8 % (42.0-52.0); HEMOGLOBIN 13.8 g/dL (14.0-18.0); IMM GRAN# 0.04 X1000 (0.0-0.04); IMM GRAN% 0.4 % (0.0-0.5); LYMPH# 1.99 X1000 (1.2-3.4); LYMPH% 17.8 % (20.5-51.1); MCH 29.7 PG (27-31); MCV 90.1 FL (81-99); MONO# 1.06 X1000 (0.11-0.59); MONO% 9.5 % (1.7-9.3); MPV 10.3 FL (7.4-10.4); PLT 268 X1000 (130-400); RBC 4.64 XMIL (4.7-6.1)
[2017-01-14] MEDS: D5 1/2 NS + KCL 20 MEQ 1,000 ML IV SCH ×2 (06:28)
[2017-01-14] MEDS: NORCO-10 PO PRN ×3 (06:28→22:39)
--- NOTE | 2017-01-14 10:15 | PROGRESS NOTE ---
DATE: 01/14/2017 Mr. Nick Suarez is a 46-year-old, white male who is now postop day 7 for acute cholecystitis, laparoscopic cholecystectomy per Dr. Alfredo. A drain was left at the time of surgery. His postoperative convalescence has been complicated by a return to the emergency department with abdominal pain and an elevated white blood cell count. A CT scan was performed while he was in the emergency department which suggested some postsurgical changes around the cholecystectomy but no discrete abscess. He did have a Tone drain in place that was not draining bile. He has been admitted, and was placed on clear liquids and has received IV antibiotics, and clinically has improved. His heart rate is 76, blood pressure 104/64, O2 saturation 92%. He is voiding without difficulty. He is afebrile on IV Zosyn. His white blood cell count has decreased from 18-11 over the last 48 hours. His liver function tests were only slightly elevated. I removed his Tone drain this morning because it was only draining serous fluid. We will advance his diet. Hep-Lock his IV fluids. Continue IV antibiotics and plan to have Dr. Alfredo take over his care tomorrow. cc: MD Umu Dietz MD
[2017-01-14] MEDS: LOVENOX SUBQ SCH (22:39)
[2017-01-15] MEDS: ZOSYN 3.375 GM/NS 3.375 GM/50 ML IVPB IV SCH (04:17)
[2017-01-15 07:46] VITALS: BP 113/65
--- NOTE | 2017-01-17 11:58 | DISCHARGE SUMMARY ---
ADMISSION DATE: 01/12/2017 DISCHARGE DATE: 01/15/2017 ADMITTING DIAGNOSES: 1. Abdominal pain. 2. Elevated white blood cell count, status post laparoscopic cholecystectomy. POSTOPERATIVE DIAGNOSIS: Intra-abdominal infection, status post laparoscopic cholecystectomy. PRINCIPAL PROCEDURE: Admission with IV antibiotics. DISCHARGE DIET: Regular. DISCHARGE DISPOSITION: He will followup with Dr. Rbo Alfredo in our outpatient office. DISCHARGE DISABILITY: Full. DISCHARGE MEDICATIONS: He is to return to his home medications. HOSPITAL COURSE: Mr. Nick Suarez is a 46-year-old white male, patient of Dr. Alfredo's, who presented to our emergency department on 01/12/2017 several days after undergoing a laparoscopic cholecystectomy for acute cholecystitis, with right upper quadrant pain and an elevated white blood cell count of 18. He still had a Tone drain in place from the time of surgery per Dr. Alfredo. I admitted him over the weekend and gave him IV antibiotics to help with his symptoms. A CT scan of abdomen and pelvis documented no evidence of intra-abdominal abscess or biliary obstruction. With IV antibiotics, symptomatically improved daily. We were able to his advanced his diet. I pulled his Tone drain on Sunday. Dr. Alfredo returned on Sunday and discharged him home on 01/15/2017 with followup in his outpatient office. At discharge he had no abdominal pain. He was tolerating a regular diet. He was afebrile. Heart rate was 73, blood pressure 113/65. O2 saturation 100%. He had several bowel movements. He is eating 100% of his meals. His last white blood cell count was 520 and it was 2017 and it was 11.21. He knows to contact us with any problems. cc: MD Umu Dietz MD
== END 2017-01-15 10:45 | disposition home or self-care (01) ==
LOC: ED 16:23 → 4N 22:43
PROVIDERS: ADMIT Surgery; ATTEND Surgery